=== PATIENT | female | born 1970 | race American Indian/Alaskan Native ===

== ENCOUNTER 2018-03-18 22:51 | Emergency (ER) | payer MEDICAID ==
[2018-03-19] MEDS ORDERED: TORADOL IM ONE (02:54)
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
[2018-03-19 03:06] VITALS: BP 152/94
== END 2018-03-19 03:12 | disposition home or self-care (01) ==
LOC: ED 22:51
DX: M79.661 Pain in right lower leg (principal); F17.200 Nicotine dependence, unspecified, uncomplicated; Z91.012 Allergy to eggs; Z98.51 Tubal ligation status
CPT/HCPCS: 96372; 99282; J1885